=== PATIENT | female | born 1985 | race Two or more races ===

== ENCOUNTER → 2018-02-19 | Outpatient (CLI) | payer SELFPAY ==
[~2018-02-19] MED LIST: CONTRAST GIVEN. MC PRN; IOHEXOL 240 MG/ML 50ML VIAL. PO ONE; IOHEXOL 300 MG/ML 100ML VIAL. IV ONE; LIDOCAINE 2% PF Vial for OR 5 ML VIAL. ONE
--- NOTE | 2018-02-19 11:47 | RAD ---
CT abdomen and pelvis with contrast History: Right lower quadrant abdominal pain, blood in stool Technique: After the administration of oral and intravenous contrast, CT imaging was performed of the abdomen and pelvis. Multiplanar images are reviewed. Exposure: One or more of the following individualized dose reduction techniques were utilized for this examination: 1. Automated exposure control 2. Adjustment of the mA and/or kV according to patient size 3. Use of iterative reconstruction technique. Contrast: 75 cc Omnipaque 300 Comparison: None Findings: There is no significant abnormality of the visualized lung bases. There is no significant abnormality of the liver, spleen, pancreas, adrenal glands. Both kidneys enhance without hydronephrosis. Gallbladder is present without obvious intraluminal abnormality by CT. Bowel is not significantly dilated. The entirety of the colon is not opacified with oral contrast for accurate evaluation. Normal appendix is visualized. There is some retained stool in the colon. There is very minimal free fluid in the dependent pelvis. There is no free air. Right ovarian vein is more dilated than the left, difficult to assess patency more inferiorly near the space of contrast enhancement although proximally appears patent. No discrete pelvic mass is identified. There are some slightly prominent parametrial vessels. Impression: 1. There is no evidence of acute appendicitis. There is retained stool in the colon, the entirety of the colon not opacified with contrast for accurate evaluation. There is minimal nonspecific free fluid in the pelvis. 2. There is nonspecific more prominent right ovarian vein, otherwise difficult to evaluate patency more inferiorly although proximally appears patent. No pelvic mass is identified. There are slightly prominent parametrial vessels, can be associated with pelvic congestion syndrome in the appropriate clinical setting. Electronically signed by: Nash Gatica MD (02/19/2018 11:44 AM) [id number]
== END | disposition home or self-care (01) ==
LOC: CT 09:31
PROVIDERS: ATTEND Family Medicine
DX: K59.00 Constipation, unspecified (principal); K92.1 Melena
CPT/HCPCS: 74177; Q9966; Q9967; J2001